=== PATIENT | female | born 1975 | race Caucasian/White ===

== ENCOUNTER → 2019-08-27 | Outpatient (CLI) | payer OTHER ==
[2019-08-27 15:05] LABS: HCT 30.9 % (34.0-46.0); HGB 9.8 gm/dL (11.4-16.0); MCH 26.3 pg (25.0-35.0); MCHC 31.7 g/dL (31.0-37.0); MCV 83.1 fL (80.0-100.0); Mean Platelet Volume 6.1; Platelet Count 463 k/uL (150-450); RBC 3.72 m/uL (3.80-5.40); RDW 14.9 % (11.5-15.5); WBC 17.2 k/uL (3.8-10.6)
[2019-08-27 15:11] LABS: INR 2.8 (<1.2); Prothrombin Time 27.1 sec (9.0-12.0)
[2019-08-27 19:29] LABS: Erythrocyte Sedimentation Rate 48 mm/hr (0-20)
[2019-08-27 20:20] LABS: ALT 14 U/L (8-44); AST 24 U/L (13-35); African American GFR (CKD) 89.5 (60.0-200.0); Albumin/Globulin Ratio 2.76 (1.60-3.17); Alkaline Phosphatase 52 U/L (41-126); BUN/Creat Ratio 15.56 Ratio (12.00-20.00); C Reactive Protein 9.2 mg/dL (0.0-0.8); Calcium 9.3 mg/dL (8.7-10.3); Carbon Dioxide 23.3 mmol/L (21.6-31.8); Chloride 106 mmol/L (96-109); Globulin 1.7 g/dL (1.6-3.3); Glucose 105 mg/dL (70-110); Non-African American GFR(CKD) 77.2 (60.0-200.0); Potassium 4.2 mmol/L (3.5-5.5); Sodium 139 mmol/L (135-145); Total Bilirubin 0.5 mg/dL (0.3-1.2); Total Protein 6.4 g/dL (6.2-8.2)
[2019-08-27 20:42] LABS: Folate, Serum >24.0 ng/mL
== END | disposition home or self-care (01) ==
LOC: LABWHC1 14:13
PROVIDERS: ATTEND Nurse Practitioner
DX: K51.90 Ulcerative colitis, unspecified, without complications (principal)
CPT/HCPCS: 36415; 80053; 82746; 83993; 85027; 85610; 85652; 86140

== ENCOUNTER → 2021-02-24 | Outpatient (CLI) | payer OTHER | END | disposition home or self-care (01) | LOC: LABWHC1 11:16 | PROVIDERS: ATTEND Internal Medicine Hematology & Oncology | DX: I26.99 Other pulmonary embolism without acute cor pulmonale (principal); D50.0 Iron deficiency anemia secondary to blood loss (chronic); Z71.3 Dietary counseling and surveillance | CPT/HCPCS: 36415; 81240; 81241; 85300 ==

== ENCOUNTER → 2021-03-13 | Outpatient (CLI) | payer OTHER ==
[2021-03-13 09:38] VITALS: BP 126/88; PULSE 88; RESP 16; TEMP 98.1
--- NOTE | 2021-03-13 09:58 | P.PAINCN ---
History of Present Illness - Reason for Consult Consult date: 03/13/21 - History of Present Illness This is 45 years old female with a chronic history of severe,Right Hip pain, which is increased in intensity after she was attacked by dog , and that time on she started complaining of severe right hip pain the pain is constant and increases with any activity especially movement walking, or sitting can increase her pain, pain radiated from the right hip to the groin,, she denies any numbness or tingling sensation she denies any fever or night sweats, is a patient complaining of severe neck pain the pain is constant and increases with any neck movement, he denies any radiation of the pain she denies any numbness or tingling sensation in the upper extremities, she reported that her hip pain is more prominent than the neck pain Past Medical History Past Medical History: Asthma, GERD/Reflux, Hypertension Additional Past Medical History / Comment(s): ULCERATIVE COLITIS. HX OF PULMONARY BLOOD CLOTS History of Any Multi-Drug Resistant Organisms: None Reported Past Surgical History: Section Additional Past Surgical History / Comment(s): RHINOPLASTY Past Anesthesia/Blood Transfusion Reactions: No Reported Reaction Smoking Status: Never smoker - Past Family History Mother Family Medical History: No Reported History Medications and Allergies Home Medications Medication Instructions Recorded Confirmed Type Albuterol Inhaler [Ventolin Hfa 2 puff INHALATION DIRECTED PRN 01/03/21 03/13/21 History Inhaler] Albuterol Sulfate [Proair Hfa] 2 puff INHALATION Q4HR PRN 01/03/21 03/13/21 History Escitalopram [Lexapro] 1 tab PO DAILY 01/03/21 03/13/21 History Folic Acid 1 mg PO DAILY 01/03/21 03/13/21 History Loratadine 10 tab PO DAILY 01/03/21 03/13/21 History Metoprolol Tartrate 25 tab PO BID 01/03/21 03/13/21 History Montelukast [Singulair] 10 mg PO DAILY 01/03/21 03/13/21 History Omeprazole 40 mg PO DAILY 01/03/21 03/13/21 History Spironolactone 50 tab PO DAILY 01/03/21 03/13/21 History amLODIPine [Norvasc] 10 mg PO DAILY 01/03/21 03/13/21 History sulfaSALAzine [Sulfasalazine] 500 mg PO DAILY 01/03/21 03/13/21 History Aspirin [Adult Low Dose Aspirin EC] 81 mg PO DAILY 03/07/21 03/13/21 History Allergies Allergy/AdvReac Type Severity Reaction Status Date / Time lisinopril Allergy Anaphylaxis Verified 03/07/21 10:42 ibuprofen AdvReac Unknown STOMACH Verified 03/07/21 11:41 PROBLEMS Physical Exam Vitals: Vital Signs Temp Pulse Resp BP Pulse Ox 03/13/21 09:34 98.1 F 88 16 126/88 97 Physical Examinations : -Constitutiona : Cooperative , not in acute distress . -HEENT : nech : supple , no Lymphadenopathy , normal thyroid size . : eyes : no ptosis , no icterus, no photophobia . - neurologic : Cranial nerve II to XII intact , no focal neurological deffecit . -psychatric : alert , oriented X 3 , appropriate affect , intact judgment and insight . -Lymphatic : no Lymphadenopathy . - musculoskeltal : Cervical Spine motor stregnth in the deltoid and biceps, normal right side , normal Left side motor stregnth biceps and the wrist extensors normal right side ,normal left side . motor stregnth in the triceps muscle . normal Right side , normal Left side deep tendon reflexes normal at the biceps , normal at Brachioradialis , normal at triceps. cervical facet loading test: Positive Bilaterally Spurling test= positive Right , positive left. Neck distraction test= positive Right , positive left. Marie sign= positive right, positive left . Lumber spine moter stegnth lower extremities ,thigh and legs 5/5 Right side , 5/5 Left side deep tendon reflexes : normal Knee Jerk , normal ankle Jerk lumber facet Loading Test =positive Right , positive Left Range of motion of the lumbar spine Flexion 30 degrees, extension 10 degrees strait leg raising test = positive at 30 degree on the right side Fabere test= positive Right , and negative LT . Sever tenderness over the Sacroiliac joint on the Right . Gaenslen test= positive right . Seated flexion test= positive right . Distraction test= positive right y Results Comments: Computed tomography scan of the right hip severe osteoarthritis of the right hip joint Computed tomography scan of the cervical spine degenerative disc disease and foraminal narrowing at C5 6,C 6 7, and facet joint hypertrophy Assessment and Plan Plan: Assessment and plan=1-right hip arthralgia, osteoarthritis of the right hip joint 2-right sacroiliitis. 3-cervical degenerative disc disease. 4-cervical foraminal stenosis. 5-Cervical spondylosis with cervical facet arthropathy. Patient could benefit from right side hip injection(intraarticular ) under fluoroscopy guidance. If she continues to have pain after the right hip injection and consider doing a right sacroiliac joint steroid injection we will Address the neck pain after we treat her right hip pain. Time with Patient: Greater than 30 PQRS Measure Charge Sheet Measure #130: Documentation of Current Meds in Medical Chart: Patient's medications documented in chart Measure #226: Tobacco Use: Screen & Cessation Intervention: Pt not a tobacco user Measure #111: Pneumonia Vaccination: Pneumococcal vaccine NOT administered or previously given Measure #47: Advance Care Plan: Advance care planning discussed & documented, pt chose/unable to give Measure #412: Opioid Treatment Agreement: No documentation of signed opioid treatment agreement Measure #408: Opioid Therapy Follow-up Evaluation: Patient had NO f/u eval minimum every 3 months during opioid therapy Measure #317: Preventitive Care & Scrn High Bld Press & F/U: Normal blood pressure, f/u not required Measure #128: Body Mass Index (BMI) Screening & Follow-up: BMI documented within normal parameters Measure #131: Pain Assessment & Follow-up: Pain positive & plan documented, Follow-up scheduled Measure #431: Unhealthy Alcohol Use Preventative Care & Scrn: Patient not identified as an unhealthy alcohol user PQRS Narrative: Blood Pressure 126/88 Pain Intensity [Right Hip] 8 Scale Used Numeric (1 - 10) Home Medications: Ambulatory Orders Albuterol Inhaler [Ventolin Hfa Inhaler] 2 puff INHALATION DIRECTED PRN 01/03/21 Albuterol Sulfate [Proair Hfa] 2 puff INHALATION Q4HR PRN 01/03/21 Escitalopram [Lexapro] 1 tab PO DAILY 01/03/21 Folic Acid 1 mg PO DAILY 01/03/21 Loratadine 10 tab PO DAILY 01/03/21 Metoprolol Tartrate 25 tab PO BID 01/03/21 Montelukast [Singulair] 10 mg PO DAILY 01/03/21 Omeprazole 40 mg PO DAILY 01/03/21 Spironolactone 50 tab PO DAILY 01/03/21 amLODIPine [Norvasc] 10 mg PO DAILY 01/03/21 sulfaSALAzine [Sulfasalazine] 500 mg PO DAILY 01/03/21 Aspirin [Adult Low Dose Aspirin EC] 81 mg PO DAILY 03/07/21
== END | disposition home or self-care (01) ==
LOC: PNWHC3 09:08
PROVIDERS: ATTEND Specialist
DX: M16.11 Unilateral primary osteoarthritis, right hip (principal); M50.30 Other cervical disc degeneration, unspecified cervical region; M46.92 Unspecified inflammatory spondylopathy, cervical region
CPT/HCPCS: 99211

== ENCOUNTER 2021-03-28 13:18 | Day surgery (SDC) | payer OTHER ==
[2021-03-24 10:23] VITALS: BMI 21.2
[~2021-03-28 13:18] MED LIST: LACTATED RINGERS 1,000 ML IV SCH
[2021-03-28 13:43] VITALS: RESP 16; TEMP 97.9
[2021-03-28] MEDS ORDERED: LIDOCAINE 1% (10MG/ML) FOR IV START INTRADERMA ONE (13:50)
[2021-03-28] MEDS ORDERED: IOPAMIDOL M200 10 ML VIAL ONE (13:52)
[2021-03-28] MEDS ORDERED: ROPIVACAINE 5MG/ML 20ML VIAL ONE (13:52)
[2021-03-28] MEDS ORDERED: fentaNYL (PF) 50 MCG/ML 2 ML AMP ONE (13:52)
[2021-03-28] MEDS ORDERED: MIDAZOLAM 2 MG/2 ML VIAL ONE (13:52)
[2021-03-28] MEDS ORDERED: methylPREDNISolone ACETATE 40 MG/ML 1 ML VIAL ONE (13:52)
[2021-03-28] MEDS ORDERED: IV FLUID CONTINUATION 600 ML IV ONE (14:07)
--- NOTE | 2021-03-28 14:10 | P.PCN ---
Date of Procedure: 03/28/21 Procedure(s) Performed: Description of Procedure: PREOPERATIVE DIAGNOSIS: Right hip osteoarthritis. 2-Right Hip artharalgia POSTOPERATIVE DIAGNOSIS: same PROCEDURES: Right intra-articular hip injection with fluoroscopy (fluoroscopy images available in the radiology Department ) ANESTHESIA: Moderate sedation with versed 1 mg , and fentanyl 50 Mcg EBL: Minimal PROCEDURE INDICATION: The patient with left hip pain secondary to osteoarthritis who has been unresponsive to conservative therapy. No use of blood thinners. PROCEDURE DESCRIPTION / TECHNIQUE: The patient was seen and identified in the preoperative area. Risks, benefits, complications, and alternatives were dis cussed with the patient (including but not limited to incomplete pain relief, bleeding, infection, nerve damage, and allergies to medications), the patient agreed to proceed with the procedure and signed the consent after all questions were answered. Patient was taken to the OR and time out was completed to verify proper patient, position, laterality of pain, and allergies. Pt was placed in supine position. IV was started. Vital signs remained stable throughout the procedure. . The Right hip and Groin area was prepped and draped in the usual sterile fashion. Vital signs were closely monitored during the procedure. Conscious sedation was used during the procedure to decrease patients anxiety. Using AP fluoroscopy, the femoral neck was identified, marked, and localized with Ropivacaine 0.5 % 3 ml Subsequently, a 22 gauge 3.5-inch spinal needle was advanced guided by fluoroscopy to the 10 o'clock position on the femoral neck until the needle was felt entering the hip capsule. then ISO VIEW 200 2 ml injected after negative aspirations ,it showed intraarticular spread ,,demonstrate an arthrogram. After negative aspiration for CSF or heme and in the absence of paresthesias, the full 6 ml ml of the block solution containing Depo-Medrol 40 mg and 5 mL of preservative-free 0.5% Ropivacaine was injected. At the end of the procedure, the skin was cleansed and bandages were applied. COMPLICATIONS: No acute complications. DISPOSITION / PLANS: The patient was placed in a supine position and transferred to the recovery area in a stable condition for observation and was discharged from the recovery room after meeting discharge criteria. Home discharge instructions given to the patient by the staff.
[2021-03-28 14:28] VITALS: BP 136/88; PULSE 85
--- NOTE | 2021-03-28 14:32 | FL ---
EXAMINATION TYPE: FL guided pain mgmt statistic DATE OF EXAM: 03/28/2021 CLINICAL HISTORY: Hip pain. TECHNIQUE: Fluoroscopy. COMPARISON: None. FINDINGS: Fluoroscopic guidance was provided during pain relief procedure performed by Dr. Ribera . A total of 9 seconds of fluoroscopic time was utilized during the procedure and 1 spot images are acquired. Single image acquired shows needle localization with contrast injection at level of hip edmar int. IMPRESSION: As Above.
== END 2021-03-28 14:48 | disposition home or self-care (01) ==
LOC: ORPAIN 13:18
PROVIDERS: ATTEND Specialist
DX: M16.11 Unilateral primary osteoarthritis, right hip (principal)
CPT/HCPCS: 81025; 20610; J2250; J1030; J3010; Q9966; J2795

== ENCOUNTER → 2021-04-19 | Outpatient (CLI) | payer OTHER ==
[2021-04-19 11:26] VITALS: BP 117/83; PULSE 103; RESP 18; TEMP 98
--- NOTE | 2021-04-19 11:39 | P.PN ---
Subjective Progress Note Date: 04/19/21 This is a 46-year-old lady with history of pain in the right hip joint with radiation to the groin anteriorly. The patient received an injection of steroids in the right hip joint intra-articularly which gave her very good relief of her pain. The patient for his occasional numbness in the right leg from time to time. The patient's level of activities has increased since the last injection of them joint. She does not take as much pain medications as she used to before the injection. Patient denies new-onset weakness, bowel/bladder incontinence, or any other signs or symptoms of cauda equina syndrome. There are no signs of acute intoxication, and no indications of medication diversion or overuse. In addition to above, 13-point review of systems is also negative for chest pain, shortness of breath, changes in vision, changes in hearing, new onset weakness, abdominal pain, diarrhea, extreme fatigue, malaise, fever, skin changes, homicidal or suicidal ideation, or bowel or bladder incontinence. Vital Signs: Reviewed in EMR Gen: AAOx3, NAD HEENT: PERRLA,hearing grossly normal Pulm: resp unlabored Neck: supple, trachea midline External rotation of the right hip joint was painful Neuro: CN II-XII grossly intact, Imaging: Reviewed in EMR/chart Assessment: Right hip osteoarthritis Lumbar spondylosis without myelopathy Plan: 1. Explanation: When patients on opioids, opioid and psychological risk scores were reviewed. Diagnoses, prognoses, and multiple treatment options including but not limited to physical therapy, interventional therapies, adjuvant medical therapies, narcotic medication therapies, and surgery were discussed with the patient and all questions were answered to the patient's satisfaction. 2. Opioid agreement:When patients are prescribed opoids through our clinic, opioid agreement is signed with the patient and the patient is warned not to use opioids while driving or before driving and not to combine opioids with benzodiazepines or alcohol. 3. Counseling: When patient is smoking or obese, the patient was counseled extensively on SMOKING CESSATION, BODY MASS INDEX, EXERCISE. Specifically, the patient was instructed regarding the importance of smoking cessation, obesity, and exercise in the context of both chronic pain and overall health. 4. Procedures: The patient's pain gets worse when he might need to repeat the intra-articular right hip joint steroid injection under fluoroscopic guidance. The patient understands that this procedure gives her temporary relief of pain and puts her at risk for avascular necrosis of the right femur head. The plan will be doing these procedures sparingly and only when her pain is severe. The patient may eventually need to have surgery on the right hip. 5. Consultations: None 6. Investigations: None 7. Medications: None prescribed 8. Disposition: Return to clinic as needed 9. Maps were reviewed and were appropriate. Objective - Vital Signs Vital signs: Vital Signs Temp 98.0 F 04/19/21 11:21 Pulse 103 H 04/19/21 11:21 Resp 18 04/19/21 11:21 BP 117/83 04/19/21 11:21 Pulse Ox 97 04/19/21 11:21
== END | disposition home or self-care (01) ==
LOC: PNWHC3 11:07
PROVIDERS: ATTEND Anesthesiology
DX: M16.11 Unilateral primary osteoarthritis, right hip (principal); M47.816 Spondylosis without myelopathy or radiculopathy, lumbar region
CPT/HCPCS: 99211

== ENCOUNTER 2022-01-30 12:54 | Emergency (ER) | payer OTHER ==
[2022-01-30] MEDS ORDERED: LORazepam 2 MG/ML INJ IV STA (12:55)
[2022-01-30] MEDS ORDERED: KETOROLAC 15 MG/ML 1 ML VIAL IVP STA (12:55)
--- NOTE | 2022-01-30 12:59 | ED ---
General Adult HPI - General Stated complaint: Infusion Time Seen by Provider: 01/30/22 12:54 Source: patient, RN notes reviewed, old records reviewed - History of Present Illness Initial comments: This is a 46-year-old female presents emergency department after having had an iron infusion. Patient states she had mostly left lower back pain she states it felt like a cramp in her back. She states is a little bit on the right side as well she denies any difficulty breathing or shortness of breath per patient denies any chest pain or palpitations. Patient denies any palpitations per patient denies any feeling that her throat was closing off. Patient denies any rashes hives or swelling. Patient did receive Solu-Medrol and Benadryl before she arrived at the emergency department. Patient states there is no abdominal pain patient denies nausea vomiting. Patient states she's had iron infusions in the past and had no problems. Patient denies any recent fever chills or cough. - Related Data Home Medications Medication Instructions Recorded Confirmed Albuterol Sulfate [Proair Hfa] 2 puff INHALATION RT-Q4H PRN 01/03/21 01/30/22 Escitalopram [Lexapro] 20 mg PO DAILY 01/03/21 01/30/22 Folic Acid 1 mg PO DAILY 01/03/21 01/30/22 Loratadine 10 tab PO DAILY 01/03/21 01/30/22 Metoprolol Tartrate 12.5 tab PO BID 01/03/21 01/30/22 Montelukast [Singulair] 10 mg PO DAILY 01/03/21 01/30/22 Omeprazole 40 mg PO DAILY 01/03/21 01/30/22 Spironolactone 50 mg PO DAILY 01/03/21 01/30/22 amLODIPine [Norvasc] 10 mg PO DAILY 01/03/21 01/30/22 sulfaSALAzine [Sulfasalazine] 1,000 mg PO QID 01/03/21 01/30/22 Fluticasone Propion/Salmeterol 1 puff INHALATION RT-BID 04/13/21 01/30/22 [Wixela 250-50 Inhub] Apixaban [Eliquis] 5 mg PO BID 01/30/22 01/30/22 Gabapentin [Neurontin] 800 mg PO Q6H PRN 01/30/22 01/30/22 HYDROcodone/APAP 10-325MG [[place] 1 tab PO Q6H PRN 01/30/22 01/30/22 10-325] Ondansetron Odt [Zofran Odt] 8 mg PO BID PRN 01/30/22 01/30/22 Sennosides [Senokot] 8.6 mg PO BID PRN 01/30/22 01/30/22 oxyCODONE HCL [OxyIR] 5 mg PO Q6H PRN 01/30/22 01/30/22 Allergies Allergy/AdvReac Type Severity Reaction Status Date / Time lisinopril Allergy Anaphylaxis Verified 01/30/22 10:31 ibuprofen AdvReac Unknown STOMACH Verified 01/30/22 10:31 PROBLEMS Review of Systems ROS Statement: Those systems with pertinent positive or pertinent negative responses have been documented in the HPI. ROS Other: All systems not noted in ROS Statement are negative. Past Medical History Past Medical History: Asthma, GERD/Reflux, Hypertension Additional Past Medical History / Comment(s): ULCERATIVE COLITIS. HX OF PULMONARY BLOOD CLOTS History of Any Multi-Drug Resistant Organisms: None Reported Past Surgical History: Section, Orthopedic Surgery Additional Past Surgical History / Comment(s): RHINOPLASTY. RIGHT HIP SURGERY Past Anesthesia/Blood Transfusion Reactions: No Reported Reaction Smoking Status: Never smoker - Past Family History Mother Family Medical History: No Reported History General Exam - General Exam Comments Initial Comments: GENERAL: Patient is well-developed and well-nourished. Patient is nontoxic and well- hydrated and is in mild distress. ENT: Neck is soft and supple. No significant lymphadenopathy is noted. Oropharynx is clear. Moist mucous membranes. Neck has full range of motion without e liciting any pain. EYES: The sclera were anicteric and conjunctiva were pink and moist. Extraocular movements were intact and pupils were equal round and reactive to light. Eyelids were unremarkable. PULMONARY: Unlabored respirations. Good breath sounds bilaterally. No audible rales rhonchi or wheezing was noted. CARDIOVASCULAR: Patient is tachycardic at 120 beats a minute. ABDOMEN: Soft and nontender with normal bowel sounds. SKIN: Skin is clear with no lesions or rashes and otherwise unremarkable. NEUROLOGIC: Patient is alert and oriented x3. Cranial nerves II through XII are grossly intact. Motor and sensory are also intact. Normal speech, volume and content. Symmetrical smile. MUSCULOSKELETAL: Normal extremities with adequate strength and full range of motion. LYMPHATICS: No significant lymphadenopathy is noted PSYCHIATRIC: Normal psychiatric evaluation. Course Vital Signs 01/30/22 01/30/22 12:56 16:00 Pulse Rate 122 H 75 Respiratory 20 12 Rate Blood Pressure 129/92 106/94 O2 Sat by Pulse 98 98 Oximetry Medical Decision Making - Medical Decision Making EKG shows sinus rhythm at 84 bpm LA interval 249 0 77 Q-T intervals 56 QTC is 397. Patient's EKG shows no ST segment elevation or depression. CT of the chest showed no acute abnormality. Patient received Ativan and Toradol emergency department and was feeling considerably better. Patient slept most of her ED course. Patient has no complaints at this time she will be discharged home. - Lab Data Result diagrams: 01/30/22 13:30 01/30/22 15:57 Lab Results 01/30/22 01/30/22 01/30/22 Range/Units 13:30 13:30 13:30 WBC 5.9 (3.8-10.6) k/uL RBC 5.49 H (3.80-5.40) m/uL Hgb 16.9 H (11.4-16.0) gm/dL Hct 53.7 H (34.0-46.0) % MCV 97.9 (80.0-100.0) fL MCH 30.7 (25.0-35.0) pg MCHC 31.4 (31.0-37.0) g/dL RDW 13.6 (11.5-15.5) % Plt Count 438 (150-450) k/uL MPV 7.2 Neutrophils % 58 % Lymphocytes % 31 % Monocytes % 5 % Eosinophils % 1 % Basophils % 2 % Neutrophils # 3.4 (1.3-7.7) k/uL Lymphocytes # 1.8 (1.0-4.8) k/uL Monocytes # 0.3 (0-1.0) k/uL Eosinophils # 0.0 (0-0.7) k/uL Basophils # 0.1 (0-0.2) k/uL PT 10.5 (9.0-12.0) sec INR 1.0 (<1.2) APTT 24.5 (22.0-30.0) sec D-Dimer 10.04 H (<0.60) mg/L FEU Sodium (137-145) mmol/L Potassium (3.5-5.1) mmol/L Chloride (98-107) mmol/L Carbon Dioxide (22-30) mmol/L Anion Gap mmol/L BUN (7-17) mg/dL Creatinine (0.52-1.04) mg/dL Est GFR (CKD-EPI)AfAm (>60 ml/min/1.73 sqM) Est GFR (CKD-EPI)NonAf (>60 ml/min/1.73 sqM) Glucose (74-99) mg/dL Calcium (8.4-10.2) mg/dL Magnesium (1.6-2.3) mg/dL Total Bilirubin (0.2-1.3) mg/dL AST (14-36) U/L ALT (4-34) U/L Alkaline Phosphatase (38-126) U/L Troponin I (0.000-0.034) ng/mL Total Protein (6.3-8.2) g/dL Albumin (3.5-5.0) g/dL Urine Color Yellow Urine Appearance Clear (Clear) Urine pH 6.5 (5.0-8.0) Ur Specific [place] 1.008 (1.001-1.035) Urine Protein Negative (Negative) Urine Glucose (UA) Negative (Negative) Urine Ketones Negative (Negative) Urine Blood Negative (Negative) Urine Nitrite Negative (Negative) Urine Bilirubin Negative (Negative) Urine Urobilinogen <2.0 (<2.0) mg/dL Ur Leukocyte Esterase Large H (Negative) Urine RBC 3 (0-5) /hpf Urine WBC 3 (0-5) /hpf Ur Squamous Epith Cells 6 H (0-4) /hpf Urine Bacteria Rare H (None) /hpf 01/30/22 01/30/22 Range/Units 15:57 15:57 WBC (3.8-10.6) k/uL RBC (3.80-5.40) m/uL Hgb (11.4-16.0) gm/dL Hct (34.0-46.0) % MCV (80.0-100.0) fL MCH (25.0-35.0) pg MCHC (31.0-37.0) g/dL RDW (11.5-15.5) % Plt Count (150-450) k/uL MPV Neutrophils % % Lymphocytes % % Monocytes % % Eosinophils % % Basophils % % Neutrophils # (1.3-7.7) k/uL Lymphocytes # (1.0-4.8) k/uL Monocytes # (0-1.0) k/uL Eosinophils # (0-0.7) k/uL Basophils # (0-0.2) k/uL PT (9.0-12.0) sec INR (<1.2) APTT (22.0-30.0) sec D-Dimer (<0.60) mg/L FEU Sodium 132 L (137-145) mmol/L Potassium 5.1 (3.5-5.1) mmol/L Chloride 108 H (98-107) mmol/L Carbon Dioxide 17 L (22-30) mmol/L Anion Gap 7 mmol/L BUN 10 (7-17) mg/dL Creatinine 0.83 (0.52-1.04) mg/dL Est GFR (CKD-EPI)AfAm >90 (>60 ml/min/1.73 sqM) Est GFR (CKD-EPI)NonAf 85 (>60 ml/min/1.73 sqM) Glucose 126 H (74-99) mg/dL Calcium 8.6 (8.4-10.2) mg/dL Magnesium 1.7 (1.6-2.3) mg/dL Total Bilirubin 0.4 (0.2-1.3) mg/dL AST 25 (14-36) U/L ALT 13 (4-34) U/L Alkaline Phosphatase 86 (38-126) U/L Troponin I <0.012 (0.000-0.034) ng/mL Total Protein 5.9 L (6.3-8.2) g/dL Albumin 3.4 L (3.5-5.0) g/dL Urine Color Urine Appearance (Clear) Urine pH (5.0-8.0) Ur Specific [place] (1.001-1.035) Urine Protein (Negative) Urine Glucose (UA) (Negative) Urine Ketones (Negative) Urine Blood (Negative) Urine Nitrite (Negative) Urine Bilirubin (Negative) Urine Urobilinogen (<2.0) mg/dL Ur Leukocyte Esterase (Negative) Urine RBC (0-5) /hpf Urine WBC (0-5) /hpf Ur Squamous Epith Cells (0-4) /hpf Urine Bacteria (None) /hpf Disposition Clinical Impression: Muscle cramps, Adverse effect of iron Disposition: HOME SELF-CARE Condition: Good Instructions (If sedation given, give patient instructions): Muscle Cramp (ED) Is patient prescribed a controlled substance at d/c from ED?: No Referrals: Raghav Solis MD [Primary Care Provider] - 1-2 days Time of Disposition: 16:38
[2022-01-30 13:46] LABS: Basophils # (A) 0.1 k/uL (0-0.2); Basophils % (A) 2 %; Eosinophils % (A) 1 %; HCT 53.7 % (34.0-46.0); HGB 16.9 gm/dL (11.4-16.0); Lymphocytes # (A) 1.8 k/uL (1.0-4.8); Lymphocytes % (A) 31 %; MCH 30.7 pg (25.0-35.0); MCHC 31.4 g/dL (31.0-37.0); MCV 97.9 fL (80.0-100.0); Mean Platelet Volume 7.2; Monocytes # (A) 0.3 k/uL (0-1.0); Monocytes % (A) 5 %; Neutrophils # (A) 3.4 k/uL (1.3-7.7); Neutrophils % (A) 58 %; Platelet Count 438 k/uL (150-450); RBC 5.49 m/uL (3.80-5.40); RDW 13.6 % (11.5-15.5); WBC 5.9 k/uL (3.8-10.6)
[2022-01-30 14:07] LABS: Partial Thromboplastin Time 24.5 sec (22.0-30.0); Prothrombin Time 10.5 sec (9.0-12.0)
[2022-01-30 14:32] LABS: Appearance,Urine Clear (Clear); Bacteria,Urine Rare /hpf; Bilirubin,Urine Negative (Negative); Blood,Urine Negative (Negative); Color,Urine Yellow; Glucose,Urine (UA) Negative (Negative); Ketones,Urine Negative (Negative); Leukocyte Esterase,Urine Large (Negative); Nitrite,Urine Negative (Negative); PH, Urine 6.5 (5.0-8.0); Protein,Urine Negative (Negative); RBC,Urine 3 /hpf (0-5); Specific Gravity,Urine 1.008 (1.001-1.035); Squamous Epithelial Cell,Urine 6 /hpf (0-4); Urobilinogen,Urine <2.0 mg/dL (<2.0); WBC,Urine 3 /hpf (0-5)
--- NOTE | 2022-01-30 15:14 | CT ---
EXAMINATION TYPE: CT chest angio for PE DATE OF EXAM: 01/30/2022 COMPARISON: No previous CT scan is available for comparison. HISTORY: elevated d dimer CT DLP: 229.3 mGy.cm. Automated Exposure Control for Dose Reduction was Utilized. TECHNIQUE AND CONTRAST: CTA scan of the thorax is performed with IV Contrast, patient injected with 85ml mL of Isovue 370, pu lmonary angiogram protocol. MIP Images are created on an independent workstation and reviewed. FINDINGS: No definite filling defect within the pulmonary trunk, main pulmonary arteries, lobar, segmental and proximal subsegmental branches to suggest pulmonary embolism. Distal subsegmental branches are subopt imally assessed. No pulmonary trunk dilatation. No gross cardiomegaly. The ascending aorta measures 3 .5 cm. No sizable pericardial effusion. Expiratory exposure with incomplete lung expansion. Small bilateral pleural effusions. Adjacent subse gmental pulmonary atelectasis with minimal infiltration and dependent densities of the lower lobes. P atent trachea and main bronchi. Suspected subcentimeter mediastinal lymph nodes, suboptimally assessed by this CT scan. Bulky liver. Hiatal hernia containing portion of the stomach. No aggressive bone lesion. IMPRESSION: No major or central pulmonary embolism. Small bilateral pleural effusions with other incidental findi ngs as detailed above.
[2022-01-30 16:20] LABS: ALT 13 U/L (4-34); AST 25 U/L (14-36); African American GFR (CKD) >90 (>60 ml/min/1.73 sqM); Albumin 3.4 g/dL (3.5-5.0); Alkaline Phosphatase 86 U/L (38-126); Anion Gap 7 mmol/L; Blood Urea Nitrogen 10 mg/dL (7-17); Calcium 8.6 mg/dL (8.4-10.2); Carbon Dioxide 17 mmol/L (22-30); Chloride 108 mmol/L (98-107); Glucose 126 mg/dL (74-99); Magnesium 1.7 mg/dL (1.6-2.3); Non-African American GFR(CKD) 85 (>60 ml/min/1.73 sqM); Potassium 5.1 mmol/L (3.5-5.1); Sodium 132 mmol/L (137-145); Total Bilirubin 0.4 mg/dL (0.2-1.3); Total Protein 5.9 g/dL (6.3-8.2)
--- NOTE | 2022-01-30 16:51 | XR ---
EXAMINATION TYPE: XR chest 2V DATE OF EXAM: 01/30/2022 COMPARISON: NONE HISTORY: Chest pain TECHNIQUE: 2 views FINDINGS: Heart and mediastinum are normal. Lungs are clear. Diaphragm is normal. There are chest reanna ds. Bony thorax is intact. IMPRESSION: Normal chest
[2022-01-30 17:09] VITALS: BP 117/85; PULSE 87; RESP 16
== END 2022-01-30 17:07 | disposition home or self-care (01) ==
LOC: EC 12:54
DX: T80.90XA Unspecified complication following infusion and therapeutic injection, initial encounter (principal); R25.2 Cramp and spasm; J44.9 Chronic obstructive pulmonary disease, unspecified; K21.9 Gastro-esophageal reflux disease without esophagitis; Z79.83 Long term (current) use of bisphosphonates; I10 Essential (primary) hypertension; Z88.8 Allergy status to other drugs, medicaments and biological substances; Z88.6 Allergy status to analgesic agent
CPT/HCPCS: 36415; 93005; 85379; 80053; 83735; 84484; 85025; 85610; 85730; 81001; 71046; 71275; 99284; 96374; 96375; J2060; J1885; Q9967